=== PATIENT | male | born 1985 | race African-American/Black ===

== ENCOUNTER 2025-02-09 09:54 | Emergency (ER) | payer OTHER ==
[~2025-02-09] VITALS: Ht 195.6 cm; Wt 91.0 kg
[2025-02-09 09:57] VITALS: O2SAT 98
[2025-02-09] MEDS: ACETAMINOPHEN 500MG TABLET PO ONE (10:51)
[2025-02-09] MEDS: LIDOCAINE 5% PATCH TOP SCH (10:51)
[2025-02-09 13:31] LABS: BASOPHILS % 0.7 % (0.0-2.0); EOSINOPHILS % 1.2 % (0.0-5.0); HEMATOCRIT. 42.8 % (42.0-52.0); HEMOGLOBIN. 14.1 g/dL (14.0-18.0); LYMPHOCYTES % 36.4 % (20.0-50.0); MEAN PLATELET VOLUME 9.3 fl (7.4-10.4); MONOCYTES % 7.3 % (2.0-8.0); NEUTROPHILS % 54.4 % (40.0-76.0); PLATELET 170 x1000/uL (130-400); RED BLOOD CELL COUNT 5.00 mill/uL (4.7-6.1); RED CELL DISTRIBUTION WIDTH 14.3 % (11.6-14.6)
[2025-02-09 13:46] LABS: CREATININE 1.1 mg/dL (0.6-1.3)
[2025-02-09 13:47] LABS: UREA NITROGEN BLOOD 9 mg/dL (9-23)
[2025-02-09 13:48] LABS: ASPARTATE AMINOTRANSFERASE 37 IU/L (<34)
[2025-02-09 13:49] LABS: BILIRUBIN DIRECT 0.2 mg/dL (<=3.0); BILIRUBIN TOTAL 0.8 mg/dL (0.1-1.0); PROTEIN TOTAL 7.5 g/dL (6.0-8.3)
[2025-02-09 13:51] LABS: INR 1.0
[2025-02-09 15:10] VITALS: BP 133/88; PULSE 66; RESP 16; TEMP 36.6; O2SAT 99
== END 2025-02-09 15:34 | disposition home or self-care (01) ==
LOC: ER 09:54 → CANBEDREQ 14:40 → ER 15:34
DX: M47.816 Spondylosis without myelopathy or radiculopathy, lumbar region (principal); M48.061 Spinal stenosis, lumbar region without neurogenic claudication; Z79.899 Other long term (current) drug therapy; Z98.890 Other specified postprocedural states
CPT/HCPCS: 80076; 80048; 85025; 85610; 36415; 71045; 72131; 72148; 99285; Z7610 ×2; A4606